=== PATIENT | female | born 1945 | race Caucasian/White ===

== ENCOUNTER → 2017-10-09 | Outpatient (CLI) | payer OTHER ==
[~2017-10-09] MED LIST: ATOR40TA PO; AZIT250 PO; AZIT500 PO; Adult Low Dose81 MG PO; Albuterol2.5 MG/0.5 INH; CHLO5 PO; FLUT220OIA IH; FOLI1 PO; GABA100 PO; HYDACE5 PO; HYDACE5325 PO; INDO50 PO; IPRAOI INH; ISOMON30 PO; METO25 PO; MULVITMIND PO; NICO14TP TOP; NICO21TP TD; PRED20 PO; Prednisone20 MG PO; RXHYD5325 PO; THIA100 PO; TIOT18 INH; TRAM50 PO; Ventolin/Prove6.7 GM INH; Zithromax250 MG PO
[2017-10-09 17:45] LABS: BASOPHILS ABSOLUTE AUTO 0.14 K/mm3 (0.00-0.23); BASOPHILS PERCENT AUTO 1 % (0-2); EOSINOPHILS ABSOLUTE AUTO 0.53 K/mm3 (0.00-0.68); EOSINOPHILS PERCENT AUTO 4 % (0-6); Hematocrit 38.6 % (33.0-51.0); Hemoglobin 13.1 g/dL (11.5-16.0); IMMATURE GRAN ABSOLUTE AUTO 0.03 K/mm3 (0.00-0.10); IMMATURE GRAN PERCENT AUTO 0 % (0-1); LYMPHOCYTES ABSOLUTE AUTO 2.02 K/mm3 (0.84-5.20); LYMPHOCYTES PERCENT AUTO 16 % (21-46); MONOCYTES ABSOLUTE AUTO 1.27 K/mm3 (0.16-1.47); MONOCYTES PERCENT AUTO 10 % (4-13); Mean Corpuscular HGB 31.9 pg (26.0-34.0); Mean Corpuscular HGB Conc 33.9 g/dL (31.5-36.5); Mean Corpuscular Volume 94 fL (80-100); Mean Platelet Volume 9.6 fL (9.1-12.4); NEUTROPHILS ABSOLUTE AUTO 8.81 K/mm3 (1.96-9.15); NEUTROPHILS PERCENT AUTO 69 % (41-73); Platelet Count 500 K/mm3 (150-400); RDW Standard Deviation 48.3 fL (35.1-46.3); Red Blood Cell Count 4.11 M/mm3 (3.80-5.20)
[2017-10-09 20:40] LABS: Free Thyroxine 0.93 ng/dL (0.70-1.60)
[2017-10-09 20:52] LABS: Alanine Aminotransfer (ALT/SGP 16 U/L (12-78); Albumin, Blood 4.1 g/dL (3.4-5.0); Alk Phos 90 U/L (50-136); Anion Gap 8 mmol/L (6-16); Aspartate Aminotrans (AST/SGOT 14 U/L (12-37); Bilirubin, Total 0.6 mg/dL (0.1-1.0); Blood Urea Nitrogen 9 mg/dL (8-24); Bun/Creatinine Ratio 15.5 (12.0-20.0); CHOL/HDL RATIO 2.4; CO2, Blood 27 mmol/L (21-32); Calcium, Blood 8.9 mg/dL (8.5-10.1); Chloride, Blood 102 mmol/L (98-108); Cholesterol 162 mg/dL (50-200); Creatinine, Blood 0.58 mg/dL (0.40-1.00); Globulin, Blood 4.1 g/dL (2.2-4.0); Glomerular Filtration Rate >60 (60-); Glucose, Blood 114 mg/dL (70-99); HDL Cholesterol 68 mg/dL (>39); LDL/HDL RATIO 1.2; Low Density Lipoprotein Chol 79 mg/dL (0-110); Potassium, Blood 3.9 mmol/L (3.5-5.5); Sodium, Blood 137 mmol/L (136-145); Total Protein, Blood 8.2 g/dL (6.4-8.2); Triglycerides 73 mg/dL (30-160); Very Low Density Lipoprot Chol 14 mg/dL (6-32)
== END ==
LOC: LAB 17:33 → LAB SHORT 17:33
PROVIDERS: Nurse Practitioner Adult Health
DX: E78.5 Hyperlipidemia, unspecified (principal); D72.829 Elevated white blood cell count, unspecified; D47.3 Essential (hemorrhagic) thrombocythemia; I10 Essential (primary) hypertension; R63.4 Abnormal weight loss
CPT/HCPCS: 36415; 80053; 80061; 84439; 84443; 85025

== ENCOUNTER → 2018-07-03 | Outpatient (CLI) | payer OTHER ==
[2018-07-03 18:53] LABS: Alanine Aminotransfer (ALT/SGP 12 U/L (12-78); Albumin, Blood 3.8 g/dL (3.4-5.0); Albumin/Globulin Ratio 1.2 (0.8-1.8); Alk Phos 102 U/L (50-136); Anion Gap 8 mmol/L (6-16); Aspartate Aminotrans (AST/SGOT 10 U/L (12-37); Bilirubin, Total 0.4 mg/dL (0.1-1.0); Blood Urea Nitrogen 12 mg/dL (8-24); CO2, Blood 28 mmol/L (21-32); Calcium, Blood 8.7 mg/dL (8.5-10.1); Chloride, Blood 96 mmol/L (98-108); Creatinine, Blood 0.71 mg/dL (0.40-1.00); Globulin, Blood 3.1 g/dL (2.2-4.0); Glomerular Filtration Rate >60 (60-); Glucose, Blood 120 mg/dL (70-99); Potassium, Blood 4.4 mmol/L (3.5-5.5); Sodium, Blood 132 mmol/L (136-145); Total Protein, Blood 6.9 g/dL (6.4-8.2)
[2018-07-04 12:49] LABS: Thyroid Stimulating Hormone 1.18 uIU/mL (0.360-4.800)
== END ==
LOC: LAB 14:58 → LAB SHORT 14:58
PROVIDERS: Nurse Practitioner Family
DX: E03.9 Hypothyroidism, unspecified (principal); M81.0 Age-related osteoporosis without current pathological fracture; R53.83 Other fatigue
CPT/HCPCS: 80053; 84100; 84436; 84443

== ENCOUNTER → 2018-07-14 | Outpatient (CLI) | payer OTHER ==
[2018-07-15 12:22] LABS: BASOPHILS ABSOLUTE AUTO 0.11 K/mm3 (0.00-0.23); BASOPHILS PERCENT AUTO 1 % (0-2); EOSINOPHILS ABSOLUTE AUTO 0.44 K/mm3 (0.00-0.68); EOSINOPHILS PERCENT AUTO 5 % (0-6); Hematocrit 40.3 % (33.0-51.0); Hemoglobin 12.8 g/dL (11.5-16.0); IMMATURE GRAN ABSOLUTE AUTO 0.03 K/mm3 (0.00-0.10); IMMATURE GRAN PERCENT AUTO 0 % (0-1); LYMPHOCYTES ABSOLUTE AUTO 1.94 K/mm3 (0.84-5.20); LYMPHOCYTES PERCENT AUTO 20 % (21-46); MONOCYTES PERCENT AUTO 10 % (4-13); Mean Corpuscular HGB 32.3 pg (26.0-34.0); Mean Corpuscular HGB Conc 31.8 g/dL (31.5-36.5); Mean Corpuscular Volume 102 fL (80-100); Mean Platelet Volume 10.1 fL (9.1-12.4); NEUTROPHILS ABSOLUTE AUTO 6.33 K/mm3 (1.96-9.15); NEUTROPHILS PERCENT AUTO 64 % (41-73); Platelet Count 476 K/mm3 (150-400); RDW Coefficient Variation 12.9 % (11.7-14.2); RDW Standard Deviation 48.5 fL (35.1-46.3); Red Blood Cell Count 3.96 M/mm3 (3.80-5.20); White Blood Cell Count 9.85 K/mm3 (4.00-11.30)
== END ==
LOC: LAB 14:00 → LAB SHORT 14:00
PROVIDERS: Nurse Practitioner Family
DX: M81.0 Age-related osteoporosis without current pathological fracture (principal); D72.829 Elevated white blood cell count, unspecified
CPT/HCPCS: 82306; 83970; 85025

== ENCOUNTER → 2018-12-25 | Outpatient (CLI) | payer OTHER ==
[2018-12-25 18:07] LABS: BASOPHILS ABSOLUTE AUTO 0.11 K/mm3 (0.00-0.23); BASOPHILS PERCENT AUTO 1 % (0-2); EOSINOPHILS PERCENT AUTO 4 % (0-6); Hemoglobin 13.5 g/dL (11.5-16.0); IMMATURE GRAN ABSOLUTE AUTO 0.05 K/mm3 (0.00-0.10); IMMATURE GRAN PERCENT AUTO 1 % (0-1); LYMPHOCYTES ABSOLUTE AUTO 2.09 K/mm3 (0.84-5.20); LYMPHOCYTES PERCENT AUTO 20 % (21-46); MONOCYTES ABSOLUTE AUTO 1.03 K/mm3 (0.16-1.47); MONOCYTES PERCENT AUTO 10 % (4-13); Mean Corpuscular HGB 32.8 pg (26.0-34.0); Mean Corpuscular HGB Conc 32.9 g/dL (31.5-36.5); Mean Corpuscular Volume 100 fL (80-100); Mean Platelet Volume 9.3 fL (9.1-12.4); NEUTROPHILS ABSOLUTE AUTO 6.81 K/mm3 (1.96-9.15); NEUTROPHILS PERCENT AUTO 65 % (41-73); Platelet Count 528 K/mm3 (150-400); RDW Coefficient Variation 13.6 % (11.7-14.2); RDW Standard Deviation 49.6 fL (35.1-46.3); Red Blood Cell Count 4.12 M/mm3 (3.80-5.20); White Blood Cell Count 10.49 K/mm3 (4.00-11.30)
[2018-12-25 18:29] LABS: Alanine Aminotransfer (ALT/SGP 23 U/L (12-78); Albumin, Blood 4.1 g/dL (3.4-5.0); Albumin/Globulin Ratio 1.1 (0.8-1.8); Alk Phos 101 U/L (50-136); Anion Gap 7 mmol/L (6-16); Aspartate Aminotrans (AST/SGOT 18 U/L (12-37); Bilirubin, Total 0.4 mg/dL (0.1-1.0); Blood Urea Nitrogen 12 mg/dL (8-24); Bun/Creatinine Ratio 17.8 (12.0-20.0); CHOL/HDL RATIO 2.5; CO2, Blood 28 mmol/L (21-32); Calcium, Blood 9.3 mg/dL (8.5-10.1); Chloride, Blood 99 mmol/L (98-108); Cholesterol 173 mg/dL (50-200); Creatinine, Blood 0.68 mg/dL (0.40-1.00); Globulin, Blood 3.9 g/dL (2.2-4.0); Glomerular Filtration Rate >60 (60-); Glucose, Blood 122 mg/dL (70-99); HDL Cholesterol 68 mg/dL (>39); LDL/HDL RATIO 1.3; Low Density Lipoprotein Chol 86 mg/dL (0-110); Potassium, Blood 4.6 mmol/L (3.5-5.5); Sodium, Blood 134 mmol/L (136-145); Triglycerides 96 mg/dL (30-160); Very Low Density Lipoprot Chol 19 mg/dL (6-32)
== END ==
LOC: LAB 17:32 → LAB SHORT 17:32
PROVIDERS: Nurse Practitioner Family
DX: E78.5 Hyperlipidemia, unspecified (principal); J44.9 Chronic obstructive pulmonary disease, unspecified; I10 Essential (primary) hypertension
CPT/HCPCS: 80053; 80061; 83880; 85025

== ENCOUNTER 2019-12-23 20:43 | Inpatient (IN) | payer OTHER ==
[~2019-12-23] VITALS: Ht 162.6 cm; Wt 49.4 kg
[2019-12-23 22:58] LABS: BASOPHILS PERCENT AUTO 0 % (0-2); EOSINOPHILS ABSOLUTE AUTO 0.05 K/mm3 (0.00-0.68); EOSINOPHILS PERCENT AUTO 0 % (0-6); Hematocrit 41.4 % (33.0-51.0); Hemoglobin 13.9 g/dL (11.5-16.0); IMMATURE GRAN ABSOLUTE AUTO 0.11 K/mm3 (0.00-0.10); IMMATURE GRAN PERCENT AUTO 1 % (0-1); LYMPHOCYTES ABSOLUTE AUTO 1.31 K/mm3 (0.84-5.20); LYMPHOCYTES PERCENT AUTO 6 % (21-46); MONOCYTES ABSOLUTE AUTO 1.68 K/mm3 (0.16-1.47); MONOCYTES PERCENT AUTO 8 % (4-13); Mean Corpuscular HGB 31.9 pg (26.0-34.0); Mean Corpuscular HGB Conc 33.6 g/dL (31.5-36.5); Mean Corpuscular Volume 95 fL (80-100); Mean Platelet Volume 8.7 fL (9.1-12.4); NEUTROPHILS ABSOLUTE AUTO 19.05 K/mm3 (1.96-9.15); NEUTROPHILS PERCENT AUTO 86 % (41-73); Platelet Count 410 K/mm3 (150-400); RDW Standard Deviation 45.9 fL (35.1-46.3); Red Blood Cell Count 4.36 M/mm3 (3.80-5.20)
[2019-12-23 23:16] LABS: Alanine Aminotransfer (ALT/SGP 18 U/L (12-78); Albumin, Blood 3.9 g/dL (3.4-5.0); Albumin/Globulin Ratio 1.1 (0.8-1.8); Alk Phos 87 U/L (50-136); Anion Gap 5 mmol/L (6-16); Aspartate Aminotrans (AST/SGOT 13 U/L (12-37); Bilirubin, Total 0.9 mg/dL (0.1-1.0); Blood Urea Nitrogen 16 mg/dL (8-24); Bun/Creatinine Ratio 23.4 (12.0-20.0); CO2, Blood 28 mmol/L (21-32); Calcium, Blood 8.7 mg/dL (8.5-10.1); Chloride, Blood 101 mmol/L (98-108); Creatinine, Blood 0.69 mg/dL (0.40-1.00); Globulin, Blood 3.5 g/dL (2.2-4.0); Glomerular Filtration Rate >60 (60-); Glucose, Blood 144 mg/dL (70-99); Potassium, Blood 4.2 mmol/L (3.5-5.5); Sodium, Blood 134 mmol/L (136-145); Total Protein, Blood 7.4 g/dL (6.4-8.2)
[2019-12-24] MEDS ORDERED: Percocet 10-321 EACH PO (01:46)
--- NOTE | 2019-12-24 05:12 | NUR ---
SHIFT SUMMARY PT ADMIT TO RM 217 APPROX 0115. PT A/OX4 BUT FORGETFUL. PERSONAL BELONGINGS AT BEDSIDE. PT RECIEVED NERVE BLOCK IN ED AND TORADOL UPON ADMIT. PT REPORTS PAIN IS MANAGED WELL. PT HAS BEEN PER ORDER. PT RESTING QUIETLY AT THIS TIME. TELE IN PLACE. VSS.
[2019-12-24 05:27] LABS: BASOPHILS PERCENT AUTO 1 % (0-2); EOSINOPHILS ABSOLUTE AUTO 0.15 K/mm3 (0.00-0.68); EOSINOPHILS PERCENT AUTO 1 % (0-6); Hemoglobin 11.7 g/dL (11.5-16.0); IMMATURE GRAN ABSOLUTE AUTO 0.08 K/mm3 (0.00-0.10); IMMATURE GRAN PERCENT AUTO 0 % (0-1); LYMPHOCYTES ABSOLUTE AUTO 2.33 K/mm3 (0.84-5.20); LYMPHOCYTES PERCENT AUTO 12 % (21-46); MONOCYTES ABSOLUTE AUTO 1.94 K/mm3 (0.16-1.47); MONOCYTES PERCENT AUTO 10 % (4-13); Mean Corpuscular HGB 31.9 pg (26.0-34.0); Mean Corpuscular HGB Conc 32.5 g/dL (31.5-36.5); Mean Corpuscular Volume 98 fL (80-100); NEUTROPHILS ABSOLUTE AUTO 15.11 K/mm3 (1.96-9.15); NEUTROPHILS PERCENT AUTO 77 % (41-73); Platelet Count 349 K/mm3 (150-400); RDW Coefficient Variation 13.2 % (11.7-14.2); Red Blood Cell Count 3.67 M/mm3 (3.80-5.20); White Blood Cell Count 19.71 K/mm3 (4.00-11.30)
[2019-12-24 05:42] LABS: Alanine Aminotransfer (ALT/SGP 16 U/L (12-78); Albumin, Blood 3.3 g/dL (3.4-5.0); Albumin/Globulin Ratio 1.1 (0.8-1.8); Alk Phos 70 U/L (50-136); Anion Gap 4 mmol/L (6-16); Aspartate Aminotrans (AST/SGOT 15 U/L (12-37); Bilirubin, Total 0.9 mg/dL (0.1-1.0); Blood Urea Nitrogen 18 mg/dL (8-24); Bun/Creatinine Ratio 21.2 (12.0-20.0); CO2, Blood 28 mmol/L (21-32); Calcium, Blood 7.9 mg/dL (8.5-10.1); Chloride, Blood 104 mmol/L (98-108); Creatinine, Blood 0.85 mg/dL (0.40-1.00); Globulin, Blood 3.1 g/dL (2.2-4.0); Glomerular Filtration Rate >60 (60-); Glucose, Blood 116 mg/dL (70-99); Potassium, Blood 3.9 mmol/L (3.5-5.5); Sodium, Blood 136 mmol/L (136-145); Total Protein, Blood 6.4 g/dL (6.4-8.2)
--- NOTE | 2019-12-24 08:27 | NUR ---
DR BRUNO HERE TO SEE PT.
--- NOTE | 2019-12-24 10:41 | NUR ---
DISCUSSED PT'S HOME MEDICATION AND VS WITH DR SILVA. SEE ORDERS. DISCUSSED WITH HAND CULTIVATOR.
[2019-12-24 12:07] LABS: Source, Urine Catheter
[2019-12-24 12:18] LABS: Bilirubin, Urine Neg (Neg); Blood, Urine 1+ (Neg); Glucose Qualitative, Urine Neg (Neg); Ketones, Urine 1+ (Neg); Leukocyte Esterase, Urine Neg (Neg); Nitrite, Urine Neg (Neg); Protein, Urine 1+ (Neg); Specific Gravity, Urine 1.015 (1.003-1.022); Urobilinogen, Urine NORM (Normal); pH, Urine 6.5 (5.0-8.0)
[2019-12-24 12:43] LABS: Appearance, Urine Clear (Clear); Color, Urine Yellow (P-Yellow)
[2019-12-24 12:46] LABS: Bacteria Rare /hpf; Squamous Epithelial Cells Rare /hpf (Few); White Blood Cells, Urine 0-2 /hpf (0-5)
--- NOTE | 2019-12-24 15:46 | NUR ---
PT OUT OF ROOM FOR PROCEDURE WITH O2 IN PLACE. TELE NOTIFIED. PT WITH OTHER STAFF AND FAMILY. PT IN OWN BED. PT BEEN NPO.
--- NOTE | 2019-12-24 16:35 | NUR ---
History, Chart, Medications and Allergies reviewed before start of procedure.
--- NOTE | 2019-12-24 18:38 | NUR ---
SHIFT SUMMARY PT CONT TO BE OUT OF ROOM FOR PROCEDURE. PT BEEN NPO EXCEPT MEDS. FAMILY IN/OUT OF ROOM TODAY, WAS HERE WHEN PT WENT OUT OF ROOM. PT WAS ASSISTED WITH ADL'S PRN. PT BEEN MED FOR PAIN PRN.
--- NOTE | 2019-12-24 20:36 | NUR ---
PT BACK TO ROOM 217 FROM PACU. PT A/O X 4. SON AT BEDSIDE O2 SAT MAINTAING 90-92% ON 9L O2 OXYMIZER. BIOX IN PLACE. RT CALLED, BREATHING TREATMENT GIVEN. TELE IN PLACE. PT REPORTS PAIN OKAY AT THIS TIME.
--- NOTE | 2019-12-25 04:24 | NUR ---
SHIFT SUMMARY PT A/O X4. ARRIVED BACK TO ROOM FROM PACU AT 1999. PT CURRENTLY ON 3-4L O2 NC. BIOX AND TELE IN PLACE. O2 SAT 90-93% WITH 3-4L; PT REPORTS O2 SAT IN THIS RANGE AT BASELINE. PT IS CEDS; NICOTINE PATCH ON R ARM. PT HAS BEEN ABLE TO TOLERATE PO INTAKE. FOFANA IN PLACE, PATENT. PT REPOSITIONED SEVERAL TIMES T/O NIGHT AND MOVES LEGS WELL WITHOUT ASSISTANCE. LEGS HAVE BEEN ELEVATED ON A PILLOW. ASSISTED WITH ADL'S PRN. CALL LIGHT IN PLACE.
[2019-12-25 04:29] LABS: BASOPHILS ABSOLUTE AUTO 0.05 K/mm3 (0.00-0.23); BASOPHILS PERCENT AUTO 0 % (0-2); EOSINOPHILS PERCENT AUTO 0 % (0-6); Hematocrit 29.9 % (33.0-51.0); Hemoglobin 9.9 g/dL (11.5-16.0); IMMATURE GRAN ABSOLUTE AUTO 0.15 K/mm3 (0.00-0.10); IMMATURE GRAN PERCENT AUTO 1 % (0-1); LYMPHOCYTES ABSOLUTE AUTO 1.07 K/mm3 (0.84-5.20); LYMPHOCYTES PERCENT AUTO 4 % (21-46); MONOCYTES PERCENT AUTO 7 % (4-13); Mean Corpuscular HGB 32.9 pg (26.0-34.0); Mean Corpuscular HGB Conc 33.1 g/dL (31.5-36.5); Mean Corpuscular Volume 99 fL (80-100); NEUTROPHILS ABSOLUTE AUTO 23.69 K/mm3 (1.96-9.15); NEUTROPHILS PERCENT AUTO 88 % (41-73); Platelet Count 276 K/mm3 (150-400); RDW Coefficient Variation 13.2 % (11.7-14.2); RDW Standard Deviation 47.8 fL (35.1-46.3); Red Blood Cell Count 3.01 M/mm3 (3.80-5.20); White Blood Cell Count 26.86 K/mm3 (4.00-11.30)
[2019-12-25 04:51] LABS: Albumin, Blood 2.7 g/dL (3.4-5.0); Anion Gap 4 mmol/L (6-16); Blood Urea Nitrogen 15 mg/dL (8-24); Bun/Creatinine Ratio 25.4 (12.0-20.0); CO2, Blood 26 mmol/L (21-32); Calcium, Blood 7.7 mg/dL (8.5-10.1); Chloride, Blood 107 mmol/L (98-108); Creatinine, Blood 0.59 mg/dL (0.40-1.00); Glomerular Filtration Rate >60 (60-); Glucose, Blood 137 mg/dL (70-99); Magnesium, Blood 1.8 mg/dL (1.6-2.4); Potassium, Blood 4.5 mmol/L (3.5-5.5); Sodium, Blood 137 mmol/L (136-145)
--- NOTE | 2019-12-25 19:34 | NUR ---
SHIFT SUMMARY PATIENT STATES GOOD PAIN CONTROL WITH PO OXY Q 6 HRS. UP TO CHAIR. TAKING PO WELL. FC PATENT AND DRAINING. R HIP DRESSING D&i. CIRC CHECKS WNL. CONT ON 2L O2 PER NC; UDN TX'S PRN. NO C/O AT THIS TIME. PATIENT DESIRES TO RETURN HOME AT DISCHARGE.
[2019-12-26 05:20] LABS: BASOPHILS ABSOLUTE AUTO 0.08 K/mm3 (0.00-0.23); BASOPHILS PERCENT AUTO 0 % (0-2); EOSINOPHILS ABSOLUTE AUTO 0.35 K/mm3 (0.00-0.68); EOSINOPHILS PERCENT AUTO 2 % (0-6); Hematocrit 28.9 % (33.0-51.0); Hemoglobin 9.4 g/dL (11.5-16.0); IMMATURE GRAN ABSOLUTE AUTO 0.12 K/mm3 (0.00-0.10); IMMATURE GRAN PERCENT AUTO 1 % (0-1); LYMPHOCYTES ABSOLUTE AUTO 2.32 K/mm3 (0.84-5.20); LYMPHOCYTES PERCENT AUTO 12 % (21-46); MONOCYTES ABSOLUTE AUTO 2.04 K/mm3 (0.16-1.47); MONOCYTES PERCENT AUTO 10 % (4-13); Mean Corpuscular HGB 32.1 pg (26.0-34.0); Mean Corpuscular HGB Conc 32.5 g/dL (31.5-36.5); Mean Corpuscular Volume 99 fL (80-100); Mean Platelet Volume 9.4 fL (9.1-12.4); NEUTROPHILS ABSOLUTE AUTO 15.18 K/mm3 (1.96-9.15); NEUTROPHILS PERCENT AUTO 76 % (41-73); Platelet Count 283 K/mm3 (150-400); RDW Coefficient Variation 13.2 % (11.7-14.2); RDW Standard Deviation 47.9 fL (35.1-46.3); Red Blood Cell Count 2.93 M/mm3 (3.80-5.20); White Blood Cell Count 20.09 K/mm3 (4.00-11.30)
--- NOTE | 2019-12-26 06:02 | NUR ---
SHIFT SUMMARY POD 2 S/P RIGHT ENEIDA HIP; DRESSING C/D/I. REPOSITIONED T/O SHIFT W/ICE APPLIED DAWSON. PAIN MANAGED WITH PO MEDICATION PER EMAR. FOFANA CATH REMOVED AT 0600 TODAY, AWAITING VOIDING. DAWSON PO INTAKE. WORKED WITH R/T, USING FLUTTER VALVE AND RECEIVED ONE BREATHING TX. REQUIRES FREQUENT ENCOURAGEMENT TO T/C/DB. CONT BIOX IN PLACE WITH SPO2 ABOVE 92% ON 2L NC. PT CURRENTLY RESTING BED WITH CALL LIGHT IN REACH. WILL CONT TO MONITOR AND GIVE REPORT TO ONCOMING RN.
--- NOTE | 2019-12-26 16:35 | NUR ---
FOFANA CATHETER. PT'S CATHETER WAS REMOVED BY PREVIOUS SHIFT. PT HAS BEEN ABLE TO VOID.
--- NOTE | 2019-12-26 17:29 | NUR ---
SHIFT SUMMARY PT IS POD# 2 FROM A R ENEIDA HIP WITH DR. BRUNO. PT IS A 1 PERSON ASSIST WHEN SHE IS OOB AND AMBULATING TO THE BATHROOM. SHE AMBULATES SLOWLY AND REQUIRES WALKER AND GAIT BELT. PAIN HAS BEEN MANAGED WITH PERCOCET THIS SHIFT. PT HAS HAD GOOD INTAKE. SHE HAS BEEN ABLE TO VOID SINCE HER FOFANA WAS REMOVED THIS MORNING. PT IS CURRENTLY ON 2L OF OXYGEN, ATTEMPTED TO WEAN OXYGEN BUT PT DESATURATED AND WAS INCREASED BACK TO 2L O2. PLAN FOR POSSIBLE DISCHARGE TO SNF TOMORROW. VSS. WILL MONITOR UNTIL REPORT TO ONCOMING RN.
[2019-12-27 05:16] LABS: Anion Gap 4 mmol/L (6-16); Blood Urea Nitrogen 9 mg/dL (8-24); Bun/Creatinine Ratio 16.6 (12.0-20.0); CO2, Blood 30 mmol/L (21-32); Calcium, Blood 8.2 mg/dL (8.5-10.1); Chloride, Blood 101 mmol/L (98-108); Creatinine, Blood 0.54 mg/dL (0.40-1.00); Glomerular Filtration Rate >60 (60-); Glucose, Blood 108 mg/dL (70-99); Potassium, Blood 4.1 mmol/L (3.5-5.5); Sodium, Blood 135 mmol/L (136-145)
--- NOTE | 2019-12-27 06:40 | NUR ---
SHIFT SUMMARY LYING IN SEMI FOWLERS WITH EYES CLOSED. ASSISTED TO BSC AND BATHROOM SEVERAL TIMES TO URINATE. MEDICATED FOR PAIN X1 THIS SHIFT. DRESSINGS ARE C/D/I. DENIES PAIN, DISCOMFORT, OR FURTHER NEEDS AT THIS TIME. SAFETY MEASURES IN PLACE. WILL CONTINUE TO MONITOR AND GIVE HAND OFF TO ONCOMING SHIFT USING SBAR DURING BEDSIDE REPORT.
[2019-12-27 08:03] LABS: Hematocrit 30.4 % (33.0-51.0); Hemoglobin 9.9 g/dL (11.5-16.0); Mean Corpuscular HGB 31.8 pg (26.0-34.0); Mean Corpuscular HGB Conc 32.6 g/dL (31.5-36.5); Mean Corpuscular Volume 98 fL (80-100); Mean Platelet Volume 9.3 fL (9.1-12.4); Platelet Count 365 K/mm3 (150-400); RDW Coefficient Variation 13.2 % (11.7-14.2); RDW Standard Deviation 46.9 fL (35.1-46.3); Red Blood Cell Count 3.11 M/mm3 (3.80-5.20); White Blood Cell Count 18.99 K/mm3 (4.00-11.30)
--- NOTE | 2019-12-27 19:22 | NUR ---
SHIFT SUMMARY PT IS POD#1 FROM R HIP REPAIR. PAIN MANAGED WITH ULTRAM. PT IS A 2 PERSON ASSIST FOR TRANSFERS. PT HAS HAD MINIMAL APPETITE. PT IS FORGETFUL AT TIMES. PLAN FOR POSSIBLE DISCHARGE TO SNF. VSS. WILL MONITOR UNTIL REPORT TO ONCOMING RN.
--- NOTE | 2019-12-27 19:29 | NUR ---
SHIFT SUMMARY PT IS POD#3, SHE IS A 1 ASSIST WHEN UP WITH GAIT BELT AND WALKER. PAIN MANAGED WITH PO PAIN MEDICATION. PLAN FOR POSSIBLE DISCHARGE TOMORROW. VSS. REPORT GIVEN TO ANTOINE CARMICHAEL.
[2019-12-28 04:06] LABS: BASOPHILS ABSOLUTE AUTO 0.06 K/mm3 (0.00-0.23); BASOPHILS PERCENT AUTO 0 % (0-2); EOSINOPHILS ABSOLUTE AUTO 0.16 K/mm3 (0.00-0.68); EOSINOPHILS PERCENT AUTO 1 % (0-6); Hematocrit 28.8 % (33.0-51.0); Hemoglobin 9.4 g/dL (11.5-16.0); IMMATURE GRAN ABSOLUTE AUTO 0.09 K/mm3 (0.00-0.10); IMMATURE GRAN PERCENT AUTO 1 % (0-1); LYMPHOCYTES ABSOLUTE AUTO 1.38 K/mm3 (0.84-5.20); LYMPHOCYTES PERCENT AUTO 8 % (21-46); MONOCYTES ABSOLUTE AUTO 1.83 K/mm3 (0.16-1.47); MONOCYTES PERCENT AUTO 10 % (4-13); Mean Corpuscular HGB 31.3 pg (26.0-34.0); Mean Corpuscular HGB Conc 32.6 g/dL (31.5-36.5); Mean Corpuscular Volume 96 fL (80-100); Mean Platelet Volume 8.7 fL (9.1-12.4); NEUTROPHILS ABSOLUTE AUTO 14.73 K/mm3 (1.96-9.15); NEUTROPHILS PERCENT AUTO 81 % (41-73); Platelet Count 382 K/mm3 (150-400); RDW Coefficient Variation 12.8 % (11.7-14.2); RDW Standard Deviation 45.5 fL (35.1-46.3); White Blood Cell Count 18.25 K/mm3 (4.00-11.30)
--- NOTE | 2019-12-28 05:19 | NUR ---
SHIFT SUMMARY PT A/OX4 WITH VSS. POD 4 S/P RIGHT HIP REPAIR. NO ACUTE CHANGES THIS SHIFT. AQUACEL DRESSING TO RIGHT HIP APPEARS C/D/I. ABLE TO AMB WITH 1 ASSIST, GB, AND FWW. PAIN MANAGED WITH PO MEDICATION PER EMAR, ICE, AND REPOSITIONING. RECEIVED ONE BREATHING TX. SPO2 AT 92% ON 2L NC. ASSISTED TO BATHROOM AND WITH ADL'S OFTEN T/O SHIFT. ENCOURAGED PO INTAKE AND TURN/COUGH/DB/ FLUTTER VALUE USE. PT CURRENTLY RESTING IN BED WITH CALL LIGHT IN REACH, HAS CONT BIOX IN PLACE. PLAN FOR POSSIBLE DISCHARGE TO SNF TODAY. WILL CONT TO MONITOR AND GIVE REPORT TO ONCOMING RN.
--- NOTE | 2019-12-28 08:28 | NUR ---
DR HIGH HERE TO SEE PT.
--- NOTE | 2019-12-28 19:34 | NUR ---
SHIFT SUMMARY PT EATING AND DRINKING, VOIDING, PASSING GAS. PT BEEN ASSISTED WITH ADL'S PRN. PT BEEN MED PRN AND ORDERED. FAMILY IN/OUT OF ROOM TODAY. PT USING CALL LIGHT APPR.
--- NOTE | 2019-12-29 04:41 | NUR ---
SHIFT SUMMARY: PT S/P R HIP REPAIR. DRESSING C/D/I. PT MEDICATED WITH ULTRAM AND OXY PER EMAR. GETTING TO BATHROOM WITH ONE MINIMAL SBA AND FWW. PT C/O OF FEELING BLOATED AND THEN C/O OF NAUSEA. NO EMESIS. PT MEDICATED WITH ZOFRAN AND SIMETHICONE. DURING THIS TIME, PT VERY DIAPHORETIC. AFEBRILE. PT FEELING BETTER AFTER MEDICATIONS AND ABLE TO GET SOME REST. O2 STABLE ON 1-2L VIA NC PER PATIENT LILA. LUNGS COARSE WITH WHEEZING NOTED T/O. RECIEIVING BREATHING TREATMENTS PER RT. POSSIBLE DISCHARGE TO SNF TODAY.
[2019-12-29 04:45] LABS: BASOPHILS ABSOLUTE AUTO 0.11 K/mm3 (0.00-0.23); BASOPHILS PERCENT AUTO 1 % (0-2); EOSINOPHILS ABSOLUTE AUTO 0.25 K/mm3 (0.00-0.68); EOSINOPHILS PERCENT AUTO 1 % (0-6); Hematocrit 25.6 % (33.0-51.0); Hemoglobin 8.3 g/dL (11.5-16.0); IMMATURE GRAN ABSOLUTE AUTO 0.15 K/mm3 (0.00-0.10); IMMATURE GRAN PERCENT AUTO 1 % (0-1); LYMPHOCYTES ABSOLUTE AUTO 1.58 K/mm3 (0.84-5.20); LYMPHOCYTES PERCENT AUTO 8 % (21-46); MONOCYTES ABSOLUTE AUTO 1.86 K/mm3 (0.16-1.47); MONOCYTES PERCENT AUTO 10 % (4-13); Mean Corpuscular HGB 31.7 pg (26.0-34.0); Mean Corpuscular HGB Conc 32.4 g/dL (31.5-36.5); Mean Corpuscular Volume 98 fL (80-100); Mean Platelet Volume 8.8 fL (9.1-12.4); NEUTROPHILS ABSOLUTE AUTO 15.33 K/mm3 (1.96-9.15); NEUTROPHILS PERCENT AUTO 80 % (41-73); Platelet Count 421 K/mm3 (150-400); RDW Coefficient Variation 12.9 % (11.7-14.2); RDW Standard Deviation 46.1 fL (35.1-46.3); Red Blood Cell Count 2.62 M/mm3 (3.80-5.20); White Blood Cell Count 19.28 K/mm3 (4.00-11.30)
--- NOTE | 2019-12-29 06:24 | NUR ---
PT CONTINUES TO COMPLAIN OF NAUSEA. INCREASE IN WBC AND DECREASE IN HGB TO 8.3 THIS MORNING. PT REPORTS FEELING LIGHTHEADED. PT APPEARS PALE AND IS COOL TO TOUCH. HR TACHY AT THIS TIME RANGING FROM 115-125. CALL PLACED TO HOSPITALIST. WAITING FOR CALL BACK.
--- NOTE | 2019-12-29 06:30 | NUR ---
NEW ORDER FOR NS @75ML/HR AND UA.
--- NOTE | 2019-12-29 07:21 | NUR ---
PT REPORTS HAVING NAUSEA LAST NIGHT. REPORTS "I HAD A LOT OF GAS". PT REPORTED TO HAVE BM. PT LUNGS SOUND BETTER, HARDLY ANY WHEEZING THIS AM. PT REPORTS PAIN DOING BETTER BUT REQ A PAIN PILL WHEN ABLE. RT IN TO SEE PT THIS AM. PT BT+ X4. PT DENIES NAUSEA AT THIS TIME.
[2019-12-29 09:52] LABS: Source, Urine Clean Catch
--- NOTE | 2019-12-29 09:54 | NUR ---
RECENTLY DISCUSSED PT'S STATUS WITH DR HIGH AND CORRUGATOR OPERATOR HELPER.
[2019-12-29 10:08] LABS: Bilirubin, Urine Neg (Neg); Blood, Urine 1+ (Neg); Glucose Qualitative, Urine Neg (Neg); Ketones, Urine 1+ (Neg); Leukocyte Esterase, Urine Neg (Neg); Nitrite, Urine Neg (Neg); Protein, Urine Neg (Neg); Urobilinogen, Urine NORM (Normal)
[2019-12-29 10:09] LABS: Amorphous Light (0-Heavy); Appearance, Urine Clear (Clear); Bacteria Few /hpf; Color, Urine Yellow (P-Yellow); Squamous Epithelial Cells Few /hpf (Few)
--- NOTE | 2019-12-29 10:31 | NUR ---
DR HIGH UPDATED ON URINE SENT AND RESULTS BACK. REPORTS TO GIVE ABX BEFORE PT BEING DC'D TO SNF TODAY. WILL DISCUSS WITH REAL ESTATE OFFICE SUPERVISOR.
--- NOTE | 2019-12-29 16:08 | NUR ---
DISCHARGE: PT RECENTLY DISCHARGED TO [facility] REPORT BEEN GIVEN. IV OUT WNL, NO OTHER IV'S IN PLACE. PT RECENTLY MED FOR PAIN. PT OUT BY TRANSPORT WITH BELONGINGS. PAPERWORK INCLUDING SCRIPT SENT WITH TRANSPORT. DRESSING SENT WITH TRANSPORT. PT HAD NO NAUSEA TODAY, EATING AND DRINKING, VOIDING. PT STARTED ON ABX TODAY. PT TO BE SENT ON PO ABX PER DR HIGH. HARDWARE TEST ENGINEER ASSISTED WITH PT AND DISCHARGE. FAMILY AWARE OF PT BEING DC'D TODAY. PT SENT WITH O2 WHICH SHE REPORTS FEELING THAT IT IS WORKING PROPERLY.
== END 2019-12-29 16:00 | DRG 469 ==
LOC: ER 20:43 → SURS 12-24 00:15
PROVIDERS: Emergency Medicine; Hospitalist; Internal Medicine; Orthopaedic Surgery; ADMIT Internal Medicine
PROC: 3E0T3BZ Introduction of Anesthetic Agent into Peripheral Nerves and Plexi, Percutaneous Approach (ICD-10-PCS; 2019-12-23)
PROC: 0SRR0JA Replacement of Right Hip Joint, Femoral Surface with Synthetic Substitute, Uncemented, Open Approach (ICD-10-PCS; principal; 2019-12-24 16:30)
DX: S72.011A Unspecified intracapsular fracture of right femur, initial encounter for closed fracture (principal); J18.8 Other pneumonia, unspecified organism; J44.0 Chronic obstructive pulmonary disease with (acute) lower respiratory infection; F17.210 Nicotine dependence, cigarettes, uncomplicated; I10 Essential (primary) hypertension; Z20.828 Contact with and (suspected) exposure to other viral communicable diseases; I25.2 Old myocardial infarction; E78.5 Hyperlipidemia, unspecified; I25.10 Atherosclerotic heart disease of native coronary artery without angina pectoris; D72.829 Elevated white blood cell count, unspecified; G62.9 Polyneuropathy, unspecified; W07.XXXA Fall from chair, initial encounter; Y92.009 Unspecified place in unspecified non-institutional (private) residence as the place of occurrence of the external cause; Z99.81 Dependence on supplemental oxygen; Z88.8 Allergy status to other drugs, medicaments and biological substances; Z79.82 Long term (current) use of aspirin; Z79.899 Other long term (current) drug therapy
CPT/HCPCS: 20600; 36415; 71045; 71046; 72170; 73502; 80048; 80053; 80069; 81001; 83735; 85025; 85027; 88305; 88311; 93005; 93010; 94640; 94667; 94760; 94762; 96361-59; 96374-59; 96375-59; 97110; 97116; 97162; 97166; 97530; 97535; 99285-25; A9270; A9270-GY; C1776; J0171; J0330; J0690; J0696; J0735; J1100; J1885; J2370; J2405; J2704; J2795; J3010; J3370; J7030; J7040; U0002

== ENCOUNTER 2020-04-02 20:34 | Inpatient (IN) | payer OTHER ==
[~2020-04-02] VITALS: Ht 160 cm; Wt 45.4 kg
[~2020-04-02 20:34] MED LIST changes: +Percocet 10-321 EACH PO
[2020-04-02 20:55] LABS: BASOPHILS ABSOLUTE AUTO 0.09 K/mm3 (0.00-0.23); BASOPHILS PERCENT AUTO 1 % (0-2); EOSINOPHILS ABSOLUTE AUTO 0.25 K/mm3 (0.00-0.68); EOSINOPHILS PERCENT AUTO 2 % (0-6); Hematocrit 38.9 % (33.0-51.0); Hemoglobin 12.4 g/dL (11.5-16.0); IMMATURE GRAN ABSOLUTE AUTO 0.03 K/mm3 (0.00-0.10); IMMATURE GRAN PERCENT AUTO 0 % (0-1); LYMPHOCYTES ABSOLUTE AUTO 1.88 K/mm3 (0.84-5.20); LYMPHOCYTES PERCENT AUTO 16 % (21-46); MONOCYTES PERCENT AUTO 11 % (4-13); Mean Corpuscular HGB Conc 31.9 g/dL (31.5-36.5); Mean Corpuscular Volume 94 fL (80-100); Mean Platelet Volume 9.1 fL (9.1-12.4); NEUTROPHILS ABSOLUTE AUTO 8.04 K/mm3 (1.96-9.15); NEUTROPHILS PERCENT AUTO 69 % (41-73); Platelet Count 389 K/mm3 (150-400); RDW Coefficient Variation 15.4 % (11.7-14.2); RDW Standard Deviation 52.9 fL (35.1-46.3); Red Blood Cell Count 4.13 M/mm3 (3.80-5.20); White Blood Cell Count 11.59 K/mm3 (4.00-11.30)
[2020-04-02 21:11] LABS: Alanine Aminotransfer (ALT/SGP 15 U/L (12-78); Albumin, Blood 3.9 g/dL (3.4-5.0); Albumin/Globulin Ratio 1.1 (0.8-1.8); Alk Phos 82 U/L (50-136); Anion Gap 4 mmol/L (6-16); Aspartate Aminotrans (AST/SGOT 24 U/L (12-37); Bilirubin, Total 0.4 mg/dL (0.1-1.0); Blood Urea Nitrogen 14 mg/dL (8-24); CO2, Blood 32 mmol/L (21-32); Calcium, Blood 9.1 mg/dL (8.5-10.1); Chloride, Blood 95 mmol/L (98-108); Creatinine, Blood 0.54 mg/dL (0.40-1.00); Globulin, Blood 3.5 g/dL (2.2-4.0); Glomerular Filtration Rate >60 (60-); Glucose, Blood 112 mg/dL (70-99); Potassium, Blood 3.9 mmol/L (3.5-5.5); Sodium, Blood 131 mmol/L (136-145); Total Protein, Blood 7.4 g/dL (6.4-8.2)
--- NOTE | 2020-04-03 05:03 | NUR ---
SURGEON ASSISTANT SUMMARY ASSUMED CARE OF PT AROUND 0120. COARSE WHEEZES NOTED T/O LUNGS. DESATS WITH AMBULATION. RT TO BEDSIDE AFTER ARRIVAL, BT INITIATED AND CONTINOUS BIOX IN PLACE, SATS IN THE LOW 90S. CURRENTLY ON 3L 02 VIA UT. VSS. NO ACUTE CHANGES AT THIS TIME. BED IN LOWEST POSITION WITH CALL LIGHT IN REACH. WILL CONTINUE TO MONITOR AND REPORT TO ONCOMING RN.
--- NOTE | 2020-04-03 14:46 | NUR ---
SHIFT SUMMARY PT AWAKE AT START OF SHIFT, RESTING QUIETLY, WATCHING TV. PT THEN UP TO BSC TO VOID, BECOMING SOB WITH EXERTION AND TRYING TO GET BACK TO BED. CONT BIOX SHOWING 88% ON 4L NC. RT TX GIVEN. PT VERY ANXIOUS AT SOB. RT ASSISTED AT TEACHING PT HOW TO BREATHE, WHICH HELPED TO CALM PT DOWN. PT'S BIOX RETURNED TO LOW TO MID 90'S. PT REPORTED THAT BREATHING GOT WORSE AT HOME D/T GILIDE FIRES AND SMOKE. PT ALSO REPORTED THAT SHE IS STILL SMOKING CIGARETTES. PT ENCOURAGED TO QUIT, BREATHING ABILITY CONTINUES TO WORSEN THESE PAST FEW MONTHS. DR HIGH IN TO SEE PT. DISCUSSED PLAN OF CARE, WELL SMOKING CESSATION. PT INITIALLY REPORTED THAT SHE HAD GIVEN UP DRINKING AND THAT SMOKING WAS ALL SHE HAD LEFT. PT LATER AGREED THAT SHE DID WANT TO QUIT SMOKING TO AVOID HAVING SUCH DIFFICULTY BREATHING. IV STEROIDS GIVEN PER EMAR. PT MEDICATED FOR C/O PAIN R/T ARTHRITIS NEEDED. CALLS APPROPRIATELY FOR NEEDS. NO ACUTE DISTRESS NOTED OR REPORTED AT THIS TIME.
--- NOTE | 2020-04-04 04:42 | NUR ---
SHIFT SUMMARY A/O, ABLE TO MAKE NEEDS KNOWN. COOPERATIVE WITH CARE. CALLS AND ANSWERS QUESTIONS APPROPRIATELY. C/O PAIN/DISCOMFORT TO L SIDE/RIB; MEDICATED PER EMAR. RT INVOLVED IN CARE. LS COARSE WITH WHEEZES T/O; HARSH YET PRODUCTIVE COUGH. VERY DYSPNEIC WITH AMBULATION/TRANSFER, DIFFICULTY RE-GAINING SATURATIONS. APPEARED TO REST VERY LITTLE. VSS/AFEBRILE. NO OTHER ACUTE CHANGES TO NOTE. BED REMAINS IN LOWEST POSITION. CALL LIGHT AND BELONGINGS WITHIN REACH. WCTM. REPORT TO ONCOMING RN.
--- NOTE | 2020-04-04 16:42 | NUR ---
Initial spiritual care note: Alexus was tearful throughout conversation. She admits to me that she has been alone at home and felt close to several times. Apparently, her home O2 tubing does not reach into her bathroom and she has been "stuck" there for several hours trying to get enough oxygen to move. She is very fearful of suffocation. She blames herself as she has been unable to quit smoking. She insists upon returning home and continuing to live alone. She has 2 sons. One in [facility], and one local. They do not get along. "Both are so busy." Alexus is non-jew, but we had an easy rapport. She appeared to benefit from being heard and affirmed. Gentle crisis intervention counselor was well recieved. She will benefit from continued emotional support. She may also benefit from something along the lines of a "Life Alert." I will continue to see Alexus as schedule permits.
--- NOTE | 2020-04-04 17:58 | NUR ---
SHIFT SUMMARY PT AOX4; CALLS APPROPRIATELY. PT USES BSC WITH 1P ASSIST. PT VERY WHEEZY WITH PRODUCTIVE COUGH- MODERATE AMOUNT. PT HAD A CT SCAN OF HER CHEST TODAY. VSS. PT C.O L RIB PAIN; MEDICATED PER EMAR. PT BETWEEN 6-10 L TO MAINTAIN SATS. PT DESAT UPON EXERTION. DAUGHTER IN LAW @ BEDSIDE. BED IS IN THE LOWEST POSITION; CALL LIGHTS WITHIN REACH AND WILL CONT MONITOR.
--- NOTE | 2020-04-05 05:42 | NUR ---
ROTARY DRIER SUMMARY Patient A&OX4, able to make needs known. Calls for assistance appropriately. Uses BSC with 1p assistance. Medicated for lower back pain per EMAR. Continues on 10L of 02 to maintain sats. Dyspnea on exertion. No acute changes noted to patient this shift. Pleasant, Cooperative to care. Bed in lowest position. Call light within reach. Will continue to monitor patient. Will report to oncoming RN.
[2020-04-05 07:27] LABS: BASOPHILS ABSOLUTE AUTO 0.01 K/mm3 (0.00-0.23); BASOPHILS PERCENT AUTO 0 % (0-2); EOSINOPHILS PERCENT AUTO 0 % (0-6); Hemoglobin 12.6 g/dL (11.5-16.0); IMMATURE GRAN ABSOLUTE AUTO 0.03 K/mm3 (0.00-0.10); IMMATURE GRAN PERCENT AUTO 0 % (0-1); LYMPHOCYTES PERCENT AUTO 6 % (21-46); MONOCYTES ABSOLUTE AUTO 0.57 K/mm3 (0.16-1.47); MONOCYTES PERCENT AUTO 6 % (4-13); Mean Corpuscular HGB 29.8 pg (26.0-34.0); Mean Corpuscular HGB Conc 33.2 g/dL (31.5-36.5); Mean Corpuscular Volume 90 fL (80-100); Mean Platelet Volume 9.6 fL (9.1-12.4); NEUTROPHILS ABSOLUTE AUTO 9.15 K/mm3 (1.96-9.15); NEUTROPHILS PERCENT AUTO 88 % (41-73); Platelet Count 418 K/mm3 (150-400); RDW Coefficient Variation 15.5 % (11.7-14.2); RDW Standard Deviation 50.8 fL (35.1-46.3); Red Blood Cell Count 4.23 M/mm3 (3.80-5.20); White Blood Cell Count 10.36 K/mm3 (4.00-11.30)
[2020-04-05 07:31] LABS: Anion Gap 5 mmol/L (6-16); Blood Urea Nitrogen 25 mg/dL (8-24); CO2, Blood 31 mmol/L (21-32); Calcium, Blood 9.4 mg/dL (8.5-10.1); Chloride, Blood 103 mmol/L (98-108); Creatinine, Blood 0.56 mg/dL (0.40-1.00); Glomerular Filtration Rate >60 (60-); Glucose, Blood 140 mg/dL (70-99); Potassium, Blood 4.1 mmol/L (3.5-5.5); Sodium, Blood 139 mmol/L (136-145)
--- NOTE | 2020-04-05 10:17 | NUR ---
Attempted to visit pt. She reports that it is not a good time for me to talk to her. 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 I quickly let her know that the CM would contact her O2 provider ([facility]) to check on replacing her O2 tubing with something longer and also check on supplies that should be changed weekly to monthly that she reports she has not received from them. Also, let her know CM would be bringing her info on life alert. As I was leaving, CM, arrived with packet of info for pt to review. I will attempt to visit again later. CM plans to be in contact with [employer] and her son. Report on my brief visit to Cardiac Monitor who visited yesterday. Pt was sitting up in bed, appeared to be done with breakfast. She is dyspnic/breathless with conversation and appears rattled but alert and oriented. Plan to f/u when/if pt agreeable.
--- NOTE | 2020-04-05 17:01 | NUR ---
Shift Summary A/Ox4, pleasant and cooperative with care. Had chest physiotherapy. Medicated for pain x 3 this shift with minimal relief. Worked with PT/OT, tolerated well. Up to bathroom x 1 SBA. Bed alarm on for safety, patient is a high fall risk and had fractured L hip from fall sustained at home. So far, patient has called for needs appropriately. Nebs prn. C/O nasal congestion, received verbal order for [place] q3h prn and 48 hours of Afrin nasal spray q12h prn from Dr. Saucedo. Currently on 5L NC, desaturates down to the high 70's when patient is talking on the phone this morning. Since congestion has improved some, oxygen saturations have been better. Continuous oximeter on, probe changed this shift. No acute concerns, will continue to monitor.
--- NOTE | 2020-04-05 18:45 | NUR ---
Spiritual care note: Alexus and I had a jack conversation this morning. She looks and says she feels much better. She is anxious to get home and plans on quitting smoking. She is uncertain about the Life Alert. She does not feel she can afford it. She also tells me that home O2 concentrator is "a used one that has been laying around for years." She says she has never been prescibed home O2, but would like some. We have an easy rapport. Later in afternoon, I met with son, Pablo. He expressed enourmous stressors in his personal life and was deeply appreciative of theraputic listening and affirmation. I will remain available.
--- NOTE | 2020-04-06 04:01 | NUR ---
SHIFT SUMMARY ASSUMED CARE OF PT AT 1900. PT STATES SHE IS FEELING MUCH BETTER THAN SHE DID SINCE WHEN SHE FIRST CAME TO THE HOSPITAL. PT WAS MEDICATED FOR PAIN TWICE THIS SHIFT, PT C/O PAIN EVERYWHERE. PT WAS A 1P SBA TO BATHROOM. RT PERFORMED CHEST THERAPY AND GAVE PT A BREATHING TREATMENT. PT IS CURRENTLY ON 5L NC, PT STATES SHE IS ALWAYS SOB. NO ACUTE EVENTS DURING THE NIGHT, CALL LIGHT IN REACH, BED IN LOWEST POSTION.
--- NOTE | 2020-04-06 16:30 | NUR ---
Shift Summary C/O nasal septum soreness from high flow NC resting on it, NC was changed to regular one since patient has been titrated down to 4L, recommended lubricant be placed to avoid rubbing on septum. Medicated for chronic pain x 3 with minimal relief, treated for nasal congestion per EMAR with good relief. Diet switched to Cardiac with regular texture d/t c/o choking with ground meat and patient requesting regular texture. Solder Deposit Operator notified and will pass this onto oncoming RN. Eager to go home. No acute changes, will continue to monitor.
--- NOTE | 2020-04-06 18:08 | NUR ---
Spiritual care note: Alexus says she feels better and wants to go home. Supportive visit provided. I will remain available.
--- NOTE | 2020-04-07 05:36 | NUR ---
SHIFT SUMMARY ADMITTED FOR COPD EXACERBATION. DNR CODE. PLAN IS FOR DC ON SATURDAY. RT TX'S ARE SCHEDULED. NASAL SPRAYS ARE SCHEDULED FOR CONGESTION. I DID TALK WITH PT ABOUT TRYING TO GET CLOSER TO HER HOME DOSE OF PAIN MEDICATION TO MAKE HERSELF READY FOR DC HOME. SHE STATES SHE DOES FEEL STRONGER EVERY DAY. CHEST PHYSIOTHERAPY SESSIONS ARE SCHEDULED. SHE IS STILL WEAK AND HAS A HX OF FALLS. SHE STATES SHE CANNOT TOLERATE THE [facility] SOFT/GROUND MEAT DIET, SHE STATES A SOFT REGULAR DIET WORKS BETTER.
--- NOTE | 2020-04-07 14:22 | NUR ---
Pal Care visit made as pt completing her UDN tx. She is very receptive and She welcoming of a visit today. She looks like she is feeling much better than when I saw her two days ago. She is not flustered or anxious appearing. She is able to talk in complete sentences without severe dyspnia. Alexus reports that she is feeling much better and is anxious to be back home with her pets tomorrow. She had questions about a portable O2 tank for transportation home on d/c and also was hoping she would be able to have a small portable that would allow her to be more mobile outside of the home. I encouraged her to ask her O2 provider what devices she would be elibible for, to encourage independence and more activity outside of the home. Pt denies pain or other s/s that are troublesome to her at this time. We talked about her son and she is very appreciative of all that he does to help her. VM left for re: pt wanting to confirm that she would have O2 available for transport home. Pt was unsure if she would be leaving by private car or medical transport.
--- NOTE | 2020-04-07 18:06 | NUR ---
SHIFT SUMMARY PT HAS BEEN UP TO BATHROOM INDEPENDENTLY USING A FWW. SOB WITH ACTIVITY AND REPORTS WORKING ON LEARNING HOW TO ADAPT TO DYSPNEA WITH ACTIVITY. CONTINUOUS OXIMETRY IN PLACE AND SATS HAVE BEEN MAINTAINED IN LOW 90'S TO HIGH 80'S. OXYGEN DECREASED TO 2L/M VIA NC BY RT TODAY AFTER HOME O2 EVALUATION. PT LOOKING FORWARD TO GOING HOME TOMORROW.
--- NOTE | 2020-04-08 03:58 | NUR ---
SHIFT SUMMARY: 74 Y/O FEMALE RESTED COMFORTABLY IN BED; DENIES SOB WHILE WEARING O2 AT 2L/M PER NASAL CANNULA; ABLE AMBULATE BATHROOM AND BACK VIA WALKER WITH GAIT SLOW AND STEADY; PT CALLS FOR ASSISTANCE IF NEEDED; LUNG SOUNDS ARE DIMINISHED THROUGHOUT; BED LOW POSITION WITH CALL LIGHT AT SIDE.
[2020-04-08 05:26] LABS: BASOPHILS ABSOLUTE AUTO 0.01 K/mm3 (0.00-0.23); BASOPHILS PERCENT AUTO 0 % (0-2); EOSINOPHILS PERCENT AUTO 0 % (0-6); Hematocrit 39.1 % (33.0-51.0); Hemoglobin 13.1 g/dL (11.5-16.0); IMMATURE GRAN ABSOLUTE AUTO 0.08 K/mm3 (0.00-0.10); IMMATURE GRAN PERCENT AUTO 1 % (0-1); LYMPHOCYTES ABSOLUTE AUTO 0.83 K/mm3 (0.84-5.20); LYMPHOCYTES PERCENT AUTO 8 % (21-46); MONOCYTES ABSOLUTE AUTO 0.79 K/mm3 (0.16-1.47); MONOCYTES PERCENT AUTO 8 % (4-13); Mean Corpuscular HGB Conc 33.5 g/dL (31.5-36.5); Mean Corpuscular Volume 90 fL (80-100); Mean Platelet Volume 9.5 fL (9.1-12.4); NEUTROPHILS ABSOLUTE AUTO 8.13 K/mm3 (1.96-9.15); NEUTROPHILS PERCENT AUTO 83 % (41-73); Platelet Count 428 K/mm3 (150-400); RDW Coefficient Variation 15.7 % (11.7-14.2); RDW Standard Deviation 51.8 fL (35.1-46.3); Red Blood Cell Count 4.37 M/mm3 (3.80-5.20); White Blood Cell Count 9.84 K/mm3 (4.00-11.30)
[2020-04-08 05:55] LABS: Anion Gap 3 mmol/L (6-16); Blood Urea Nitrogen 31 mg/dL (8-24); Bun/Creatinine Ratio 57.8 (12.0-20.0); CO2, Blood 32 mmol/L (21-32); Calcium, Blood 9.1 mg/dL (8.5-10.1); Chloride, Blood 99 mmol/L (98-108); Creatinine, Blood 0.54 mg/dL (0.40-1.00); Glomerular Filtration Rate >60 (60-); Glucose, Blood 134 mg/dL (70-99); Potassium, Blood 4.5 mmol/L (3.5-5.5); Sodium, Blood 134 mmol/L (136-145)
--- NOTE | 2020-04-08 10:53 | NUR ---
PT PLEASANT COOP SOME PAIN GENERALIZED. MED PER EMAR. REFUSING BOWEL CARE MEDS AND LOVENOX. H/R REG, NO MURMER NOTED. NO TELE. LUNGS DIM T/O. EXP WHEEZES. ON 2L O2. RESP EASY, UNLABORED. BT X4 LAST BM YEST. REFUSING BOWEL MEDS. VOIDS SBA TO BATHROOM. WITH FFWW. BED IN LOW POSITION, CALL LITE IN REACH, CALLS APPROP. PT STATES FEELING BASELINE. WANTS TO GO HOME.
[2020-04-08] MEDS ORDERED: Nicoderm Cq1 EAC1 TOP (12:39)
[2020-04-08] MEDS ORDERED: Prednisone10 MG PO (12:46)
--- NOTE | 2020-04-08 15:08 | NUR ---
DISCHARGE REVIEWED WITH PT SHE VERBALIZED UNDERSTAQNDING MEDS AND INST. IV PULLED INTACT. NO TELE. PT TO DRESS SELF AND [facility] TO DELIVER.
--- NOTE | 2020-04-08 16:07 | NUR ---
PT WHEELED TO DOOR BY TRANSPORT WITH O2. AT 1605
== END 2020-04-08 17:14 | disposition home or self-care (01) | DRG 189 ==
LOC: ER 20:34 → MEDS 04-03 01:30 → ENPENDDIS 04-08 12:52 → MEDS 04-08 17:14
PROVIDERS: Emergency Medicine; Student in an Organized Health Care Education/Training Program; ADMIT Internal Medicine
DX: J96.21 Acute and chronic respiratory failure with hypoxia (principal); E87.1 Hypo-osmolality and hyponatremia; J44.1 Chronic obstructive pulmonary disease with (acute) exacerbation; E78.5 Hyperlipidemia, unspecified; G62.9 Polyneuropathy, unspecified; I10 Essential (primary) hypertension; F17.210 Nicotine dependence, cigarettes, uncomplicated; J96.22 Acute and chronic respiratory failure with hypercapnia; Z99.81 Dependence on supplemental oxygen; I25.2 Old myocardial infarction; Z96.643 Presence of artificial hip joint, bilateral
CPT/HCPCS: 36415; 71045; 71260; 80048; 80053; 82947; 84484; 85025; 93005; 93010; 94640; 94644; 94664; 94667; 94668; 94760; 94761; 94762; 96374; 97110; 97161; 97165; 97530; 98960; 99285-25; A9270; A9270-GY; J2930; Q9967

== ENCOUNTER → 2020-08-25 | Outpatient (CLI) | payer OTHER ==
[~2020-08-25] MED LIST changes: +Nicoderm Cq1 EAC1 TOP; +Prednisone10 MG PO
[2020-08-25 18:12] LABS: BASOPHILS ABSOLUTE AUTO 0.16 K/mm3 (0.00-0.23); BASOPHILS PERCENT AUTO 1 % (0-2); EOSINOPHILS ABSOLUTE AUTO 0.84 K/mm3 (0.00-0.68); EOSINOPHILS PERCENT AUTO 7 % (0-6); Hematocrit 41.2 % (33.0-51.0); Hemoglobin 13.5 g/dL (11.5-16.0); IMMATURE GRAN ABSOLUTE AUTO 0.06 K/mm3 (0.00-0.10); IMMATURE GRAN PERCENT AUTO 1 % (0-1); LYMPHOCYTES ABSOLUTE AUTO 2.12 K/mm3 (0.84-5.20); LYMPHOCYTES PERCENT AUTO 17 % (21-46); MONOCYTES ABSOLUTE AUTO 1.52 K/mm3 (0.16-1.47); MONOCYTES PERCENT AUTO 12 % (4-13); Mean Corpuscular HGB 32.2 pg (26.0-34.0); Mean Corpuscular HGB Conc 32.8 g/dL (31.5-36.5); Mean Corpuscular Volume 98 fL (80-100); Mean Platelet Volume 9.3 fL (9.1-12.4); NEUTROPHILS ABSOLUTE AUTO 7.81 K/mm3 (1.96-9.15); NEUTROPHILS PERCENT AUTO 62 % (41-73); Platelet Count 477 K/mm3 (150-400); RDW Coefficient Variation 13.2 % (11.7-14.2); RDW Standard Deviation 47.8 fL (35.1-46.3); Red Blood Cell Count 4.19 M/mm3 (3.80-5.20); White Blood Cell Count 12.51 K/mm3 (4.00-11.30)
[2020-08-25 18:16] LABS: Alanine Aminotransfer (ALT/SGP 23 U/L (12-78); Albumin, Blood 4.2 g/dL (3.4-5.0); Albumin/Globulin Ratio 1.3 (0.8-1.8); Alk Phos 94 U/L (50-136); Anion Gap 6 mmol/L (6-16); Aspartate Aminotrans (AST/SGOT 24 U/L (12-37); Bilirubin, Total 0.4 mg/dL (0.1-1.0); Blood Urea Nitrogen 14 mg/dL (8-24); Bun/Creatinine Ratio 17.1 (12.0-20.0); CO2, Blood 28 mmol/L (21-32); Calcium, Blood 9.3 mg/dL (8.5-10.1); Chloride, Blood 99 mmol/L (98-108); Creatinine, Blood 0.82 mg/dL (0.40-1.00); Ferritin, Serum 102 ng/mL (8-252); Globulin, Blood 3.2 g/dL (2.2-4.0); Glomerular Filtration Rate >60 (60-); Glucose, Blood 117 mg/dL (70-99); Iron Serum 77 ug/dL (50-170); Percent Saturation 25.7 % (15.0-50.0); Sodium, Blood 133 mmol/L (136-145); Total Iron Binding Capacity 300 ug/dL (250-450); Total Protein, Blood 7.4 g/dL (6.4-8.2)
[2020-08-25 18:48] LABS: CHOL/HDL RATIO 2.1; Cholesterol 205 mg/dL (50-200); HDL Cholesterol 97 mg/dL (>39); LDL/HDL RATIO 0.8; Low Density Lipoprotein Chol 78 mg/dL (0-110); Triglycerides 150 mg/dL (30-160); Very Low Density Lipoprot Chol 30 mg/dL (6-32)
== END | disposition home or self-care (01) ==
LOC: LAB SHORT 16:10 → PLD 16:10
PROVIDERS: Nurse Practitioner Family
DX: J44.9 Chronic obstructive pulmonary disease, unspecified (principal); E78.5 Hyperlipidemia, unspecified; D72.829 Elevated white blood cell count, unspecified; Z86.2 Personal history of diseases of the blood and blood-forming organs and certain disorders involving the immune mechanism
CPT/HCPCS: 80053; 80061; 82728; 83540; 83550; 85025

== ENCOUNTER → 2021-03-28 | Outpatient (CLI) | payer OTHER ==
[2021-03-28 17:40] LABS: BASOPHILS ABSOLUTE AUTO 0.17 K/mm3 (0.00-0.23); BASOPHILS PERCENT AUTO 1 % (0-2); EOSINOPHILS ABSOLUTE AUTO 0.94 K/mm3 (0.00-0.68); EOSINOPHILS PERCENT AUTO 6 % (0-6); Hematocrit 40.1 % (33.0-51.0); Hemoglobin 13.1 g/dL (11.5-16.0); IMMATURE GRAN ABSOLUTE AUTO 0.11 K/mm3 (0.00-0.10); IMMATURE GRAN PERCENT AUTO 1 % (0-1); LYMPHOCYTES ABSOLUTE AUTO 2.04 K/mm3 (0.84-5.20); LYMPHOCYTES PERCENT AUTO 12 % (21-46); MONOCYTES ABSOLUTE AUTO 1.46 K/mm3 (0.16-1.47); MONOCYTES PERCENT AUTO 9 % (4-13); Mean Corpuscular HGB 31.8 pg (26.0-34.0); Mean Corpuscular HGB Conc 32.7 g/dL (31.5-36.5); Mean Corpuscular Volume 97 fL (80-100); Mean Platelet Volume 9.6 fL (9.1-12.4); NEUTROPHILS ABSOLUTE AUTO 12.01 K/mm3 (1.96-9.15); NEUTROPHILS PERCENT AUTO 72 % (41-73); Platelet Count 468 K/mm3 (150-400); RDW Coefficient Variation 13.1 % (11.7-14.2); RDW Standard Deviation 47.2 fL (35.1-46.3); Red Blood Cell Count 4.12 M/mm3 (3.80-5.20); White Blood Cell Count 16.73 K/mm3 (4.00-11.30)
[2021-03-28 17:59] LABS: Alanine Aminotransfer (ALT/SGP 17 U/L (12-78); Albumin, Blood 4.1 g/dL (3.4-5.0); Alk Phos 94 U/L (50-136); Anion Gap 6 mmol/L (6-16); Aspartate Aminotrans (AST/SGOT 20 U/L (12-37); Bilirubin, Total 0.5 mg/dL (0.1-1.0); Blood Urea Nitrogen 11 mg/dL (8-24); CHOL/HDL RATIO 2.8; CO2, Blood 27 mmol/L (21-32); Calcium, Blood 9.5 mg/dL (8.5-10.1); Chloride, Blood 103 mmol/L (98-108); Cholesterol 243 mg/dL (50-200); Glucose, Blood 152 mg/dL (70-99); HDL Cholesterol 86 mg/dL (>39); LDL/HDL RATIO 1.5; Low Density Lipoprotein Chol 127 mg/dL (0-110); Potassium, Blood 4.4 mmol/L (3.5-5.5); Sodium, Blood 136 mmol/L (136-145); Total Protein, Blood 8.1 g/dL (6.4-8.2); Triglycerides 152 mg/dL (30-160); Very Low Density Lipoprot Chol 30 mg/dL (6-32)
[2021-03-28 18:02] LABS: Creatinine, Blood 0.69 mg/dL (0.40-1.00); Glomerular Filtration Rate >60 (60-)
== END | disposition home or self-care (01) ==
LOC: LAB 14:10 → LAB SHORT 14:10
PROVIDERS: Nurse Practitioner Family
DX: D47.3 Essential (hemorrhagic) thrombocythemia (principal); E78.5 Hyperlipidemia, unspecified; E55.9 Vitamin D deficiency, unspecified
CPT/HCPCS: 80053; 80061; 82306; 85025

== ENCOUNTER → 2021-07-27 | Outpatient (CLI) | payer OTHER ==
[2021-07-27 19:16] LABS: BASOPHILS ABSOLUTE AUTO 0.12 K/mm3 (0.00-0.23); BASOPHILS PERCENT AUTO 1 % (0-2); EOSINOPHILS ABSOLUTE AUTO 0.39 K/mm3 (0.00-0.68); EOSINOPHILS PERCENT AUTO 4 % (0-6); Hematocrit 39.6 % (33.0-51.0); Hemoglobin 12.8 g/dL (11.5-16.0); IMMATURE GRAN ABSOLUTE AUTO 0.05 K/mm3 (0.00-0.10); IMMATURE GRAN PERCENT AUTO 0 % (0-1); LYMPHOCYTES ABSOLUTE AUTO 2.33 K/mm3 (0.84-5.20); LYMPHOCYTES PERCENT AUTO 21 % (21-46); MONOCYTES ABSOLUTE AUTO 1.18 K/mm3 (0.16-1.47); MONOCYTES PERCENT AUTO 11 % (4-13); Mean Corpuscular HGB 31.4 pg (26.0-34.0); Mean Corpuscular HGB Conc 32.3 g/dL (31.5-36.5); Mean Corpuscular Volume 97 fL (80-100); Mean Platelet Volume 10.3 fL (9.1-12.4); NEUTROPHILS ABSOLUTE AUTO 7.06 K/mm3 (1.96-9.15); NEUTROPHILS PERCENT AUTO 64 % (41-73); Platelet Count 470 K/mm3 (150-400); RDW Coefficient Variation 13.3 % (11.7-14.2); RDW Standard Deviation 47.7 fL (35.1-46.3); Red Blood Cell Count 4.08 M/mm3 (3.80-5.20); White Blood Cell Count 11.13 K/mm3 (4.00-11.30)
== END | disposition home or self-care (01) ==
LOC: LAB SHORT 16:32
PROVIDERS: Nurse Practitioner Family
DX: Z13.1 Encounter for screening for diabetes mellitus (principal); E78.5 Hyperlipidemia, unspecified
CPT/HCPCS: 83036; 85025

== ENCOUNTER → 2021-12-26 | Outpatient (CLI) | payer OTHER ==
[2021-12-26 19:25] LABS: BASOPHILS PERCENT AUTO 1 % (0-2); EOSINOPHILS ABSOLUTE AUTO 0.41 K/mm3 (0.00-0.68); EOSINOPHILS PERCENT AUTO 3 % (0-6); Hematocrit 37.6 % (33.0-51.0); Hemoglobin 12.3 g/dL (11.5-16.0); IMMATURE GRAN ABSOLUTE AUTO 0.06 K/mm3 (0.00-0.10); IMMATURE GRAN PERCENT AUTO 1 % (0-1); LYMPHOCYTES ABSOLUTE AUTO 1.53 K/mm3 (0.84-5.20); LYMPHOCYTES PERCENT AUTO 12 % (21-46); MONOCYTES ABSOLUTE AUTO 0.96 K/mm3 (0.16-1.47); MONOCYTES PERCENT AUTO 7 % (4-13); Mean Corpuscular HGB 31.5 pg (26.0-34.0); Mean Corpuscular HGB Conc 32.7 g/dL (31.5-36.5); Mean Corpuscular Volume 96 fL (80-100); Mean Platelet Volume 9.5 fL (9.1-12.4); NEUTROPHILS ABSOLUTE AUTO 10.11 K/mm3 (1.96-9.15); NEUTROPHILS PERCENT AUTO 77 % (41-73); Platelet Count 423 K/mm3 (150-400); RDW Coefficient Variation 13.5 % (11.7-14.2); RDW Standard Deviation 47.9 fL (35.1-46.3); White Blood Cell Count 13.17 K/mm3 (4.00-11.30)
[2021-12-26 19:31] LABS: Albumin, Blood 4.1 g/dL (3.4-5.0); Albumin/Globulin Ratio 1.3 (0.8-1.8); Bilirubin, Total 0.5 mg/dL (0.1-1.0); Bun/Creatinine Ratio 35.2 (12.0-20.0); Calcium, Blood 9.3 mg/dL (8.5-10.1); Creatinine, Blood 0.85 mg/dL (0.40-1.00); Globulin, Blood 3.2 g/dL (2.2-4.0); Potassium, Blood 5.1 mmol/L (3.5-5.5); Total Protein, Blood 7.3 g/dL (6.4-8.2)
== END | disposition home or self-care (01) ==
LOC: LAB SHORT 19:11
PROVIDERS: Nurse Practitioner Family
DX: M19.90 Unspecified osteoarthritis, unspecified site (principal); R73.9 Hyperglycemia, unspecified
CPT/HCPCS: 80053; 83036; 85025